=== PATIENT | male | born 1995 | race Caucasian/White ===

== ENCOUNTER 2017-02-12 09:00 | Emergency (ER) | payer OTHER ==
[~2017-02-12] VITALS: Ht 177.8 cm; Wt 76.0 kg
[2017-02-12 09:03] VITALS: TEMP 36.8; Ht 177.8 cm; Wt 76.0 kg
[2017-02-12] MEDS ORDERED: IBUPROFEN 600 MG TAB PO STA (09:13)
[2017-02-12] MEDS ORDERED: LORA-749 PO (09:15)
--- NOTE | 2017-02-12 09:48 | DIAGNOSTIC IMAGING REPORT ---
LEFT KNEE 1 OR 2 VIEWS ROUTINE CLINICAL HISTORY: Left knee pain status post trauma COMPARISON: None. DISCUSSION: No fractures or dislocations are visualized. IMPRESSION: No fractures identified. Electronically signed by: Jesus Lerner M.D. 02/12/2017 9:47 AM Dictated Date/Time: 02/12/2017 9:46 AM
--- NOTE | 2017-02-12 10:04 | EMERGENCY ROOM VISIT NOTE ---
ED Visit Note First contact with patient: 09:08 CHIEF COMPLAINT: Left Knee injury HISTORY OF PRESENT ILLNESS: This 21-year-old male presents the ER with chief complaint of left knee pain and injury. The patient states that he was playing ultimate Frisbee and jumped up and when he came down he "heard a pop" in his knee gave out and he fell to the ground. The patient states that it has been painful and he has been unable to bear weight. He has not taken anything for pain. The patient denies any numbness and tingling in his lower leg. The patient denies any prior knee injury. REVIEW OF SYSTEMS: 6 system review was performed and was negative unless stated otherwise in history of present illness. PMH: The patient is healthy; wisdom teeth removal SOCIAL HISTORY: Patient lives alone. The patient denies any tobacco use but admits to occasional alcohol use. PHYSICAL EXAM: Vital Signs: Were reviewed Reviewed Nurse's notes. GEN.: 21-year -old white male appears in no acute distress. MENTAL STATUS: Alert, oriented, and cooperative. LEFT KNEE: No gross bony deformity noted. The patient is tender to palpation over the entire joint space. No popliteal tenderness noted. There is no joint effusion. The patient has full range of motion but it is painful to straighten his leg. No ligament instability noted with varus and valgus stress. Slight ligament instability with anterior drawer. The skin is normal and intact. EMERGENCY DEPARTMENT COURSE: The patient was evaluated. The patient's EMR and medication list were reviewed. The patient was given Motrin 600 mg by mouth for pain. X-ray of the left knee was ordered and interpreted by the radiologist and myself. DIAGNOSTICS:LEFT KNEE 1 OR 2 VIEWS ROUTINE CLINICAL HISTORY: Left knee pain status post trauma COMPARISON: None. DISCUSSION: No fractures or dislocations are visualized. IMPRESSION: No fractures identified. Electronically signed by: Jesus Lerner M.D. 02/12/2017 9:47 AM Dictated Date/Time: 02/12/2017 9:46 AM DIAGNOSIS: Left knee pain DISCHARGE INSTRUCTIONS: Wear knee immobilizer and use crutches for ambulation until evaluated by orthopedics. Ibuprofen 600 mg every 6 hours with food for pain. Keep leg elevated whenever possible. Ice intermittently to the knee over the next [address] Angulo today for follow-up appointment as soon as possible. Current/Historical Medications Scheduled Loratadine & Pseudoephedrine (Claritin-D 24 Hour), 1 TAB PO DAILY Allergies Coded Allergies: No Known Allergies (Unverified , 02/12/17) Vital Signs Date Time Temp Pulse Resp B/P Pulse Ox O2 Delivery O2 Flow Rate FiO2 02/12/17 09:03 36.8 100 18 138/81 97 Room Air Medications Administered Medications (Trade) Dose Ordered Sig/Carolyn Route Start Time Stop Time Status Last Admin Dose Admin Ibuprofen (Motrin Tab) 600 mg NOW STAT PO 02/12/17 09:13 02/12/17 09:14 DC 02/12/17 09:35 600 MG Departure Information Referrals No Doctor, Assigned (PCP) Patient Instructions [facility]
[2017-02-12 10:21] VITALS: BP 117/74; PULSE 71; O2SAT 99
== END 2017-02-12 10:25 | disposition home or self-care (01) ==
LOC: C.EDB 09:02 → C.EDA 10:25
DX: M25.562 Pain in left knee (principal); Z79.899 Other long term (current) drug therapy; X58.XXXA Exposure to other specified factors, initial encounter; Y93.74 Activity, frisbee

== ENCOUNTER → 2017-02-12 | Outpatient (CLI) | payer OTHER ==
[~2017-02-12] MED LIST: LORA-749 PO
--- NOTE | 2017-02-12 15:39 | DIAGNOSTIC IMAGING REPORT ---
LEFT KNEE 2 VIEWS CLINICAL HISTORY: Left knee injury. FINDINGS: Crosstable lateral and sunrise views of left knee are correlated with AP and crosstable lateral views performed the same day 02/12/2017. The skeletal structures are well mineralized. No fracture is seen. The joint spaces appear preserved. A small joint effusion is suspected. Mild prepatellar soft tissue swelling is noted. IMPRESSION: 1. No fracture is seen on the crosstable lateral and sunrise views. 2. Small joint effusion and mild prepatellar soft tissue edema. Electronically signed by: Javon Cavanaugh M.D. 02/12/2017 3:37 PM Dictated Date/Time: 02/12/2017 3:35 PM
== END | disposition home or self-care (01) ==
LOC: C.RDSM 16:41
PROVIDERS: ATTEND Physician Assistant
DX: S89.92XA Unspecified injury of left lower leg, initial encounter (principal); X58.XXXA Exposure to other specified factors, initial encounter